=== PATIENT | female | born 1980 | race Caucasian/White ===

== ENCOUNTER → 2016-12-19 | Outpatient (REF) | payer OTHER ==
[2016-12-19 20:16] LABS: FERRITIN 20 NG/ML (8-252); TOTAL PROTEIN 6.6 GM/DL (6.4-8.2)
[2016-12-19 20:22] LABS: FOLATE > 24.0 NG/ML (>5.4); VITAMIN B12 LEVEL 1101 PG/ML (247-911)
[2016-12-23 12:22] LABS: ALBUMIN % 63.6 % (55.8-66.1); GAMMA GLOBULIN % 14.7 % (11.1-18.8)
[2016-12-24 08:06] LABS: VITAMIN E LEVEL 14.8 mg/L (5.3-16.8)
== END ==
LOC: M LABNEURO 11:33
PROVIDERS: ATTEND Psychiatry & Neurology Neurology
DX: G60.9 Hereditary and idiopathic neuropathy, unspecified (principal)

== ENCOUNTER → 2016-12-26 | Outpatient (REF) | payer OTHER ==
[2016-12-26 17:24] LABS: INR 1.07
[2016-12-26 18:24] LABS: PERCENT SATURATION 41.2 % (13.2-37.4)
[2016-12-26 18:29] LABS: FOLATE 22.2 NG/ML (>5.4)
[2016-12-26 20:09] LABS: REASON FOR REVIEW COMPREHENSIVE REVIEW
== END ==
LOC: M LAB REF 16:31
PROVIDERS: ATTEND Internal Medicine Medical Oncology
DX: D64.9 Anemia, unspecified (principal); D72.819 Decreased white blood cell count, unspecified

== ENCOUNTER → 2017-01-06 | Outpatient (REF) | payer OTHER ==
[~2017-01-06] MED LIST: AUGM875T27 PO; FERRPOW60 PO; MULT1TAB10 PO; NORCOTAB PO; OMEG100011 PO; PROBCAP4 PO; ZOFR4TAB3 PO
== END ==
LOC: M LAB REF 16:21
PROVIDERS: ATTEND Internal Medicine Medical Oncology
DX: D64.9 Anemia, unspecified (principal); D72.819 Decreased white blood cell count, unspecified

== ENCOUNTER 2017-01-07 13:08 | Emergency (ER) | payer OTHER ==
[~2017-01-07] VITALS: Ht 162.6 cm; Wt 63.5 kg
[2017-01-07] MEDS ORDERED: OMEG100011 PO (13:40)
[2017-01-07] MEDS ORDERED: MULT1TAB10 PO (13:40)
[2017-01-07] MEDS ORDERED: AUGM875T27 PO (13:40)
[2017-01-07] MEDS ORDERED: PROBCAP4 PO (13:40)
[2017-01-07] MEDS ORDERED: FERRPOW60 PO (13:40)
[2017-01-07] MEDS ORDERED: NS 1,000 ML IV SCH (14:16)
[2017-01-07 14:56] LABS: BASO % 0.6 % (0.0-1.0); EOS % 0.9 % (0.0-3.0); LARGE UNSTAINED CELL # 0.1 K/mm3 (0.0-0.4); LARGE UNSTAINED CELL % 1.9 % (0.0-4.0); LYMPH # 1.6 K/mm3 (1.5-4.5); LYMPH % 36.1 % (24.0-44.0); MEAN CORPUSCULAR HEMOGLOBIN 30.9 pg (27.0-33.0); MEAN CORPUSCULAR HGB CONC 32.4 g/dl (32.0-36.5); MEAN CORPUSCULAR VOLUME 95.5 fl (80.0-96.0); MONO # 0.2 K/mm3 (0.0-0.8); NEUTROPHILS # 2.5 K/mm3 (1.8-7.7); NEUTROPHILS % 56.5 % (36.0-66.0); PLATELET COUNT, AUTOMATED 165 k/mm3 (150-450); RED CELL DISTRIBUTION WIDTH 17.2 % (11.5-14.5); WHITE BLOOD COUNT 4.4 K/mm3 (4.0-10.0)
[2017-01-07 15:33] LABS: ALBUMIN 3.9 GM/DL (3.2-5.2); ALBUMIN/GLOBULIN RATIO 1.34 (1.00-1.93); ALKALINE PHOSPHATASE 44 U/L (45-117); ALT/SGPT 22 U/L (12-78); ANION GAP 6 MEQ/L (8-16); AST/SGOT 18 U/L (15-37); BILIRUBIN,DIRECT 0.3 MG/DL (0.0-0.2); BILIRUBIN,TOTAL 1.1 MG/DL (0.2-1.0); BLOOD UREA NITROGEN 11 MG/DL (7-18); CALCIUM LEVEL 8.4 MG/DL (8.5-10.1); CARBON DIOXIDE LEVEL 29 MEQ/L (21-32); CHLORIDE LEVEL 106 MEQ/L (98-107); CREATININE FOR GFR 1.01 MG/DL (0.55-1.02); GLOMERULAR FILTRATION RATE > 60.0 (>60); GLUCOSE, FASTING 106 MG/DL (70-105); POTASSIUM SERUM 4.1 MEQ/L (3.5-5.1); SODIUM LEVEL 141 MEQ/L (136-145); TOTAL PROTEIN 6.8 GM/DL (6.4-8.2)
[2017-01-07] MEDS ORDERED: ISOVUE-370 76% 100ML VIAL (Q9967) As Ordered ONE (15:38)
--- NOTE | 2017-01-07 16:07 | REP ---
Clinical: Status post cholecystectomy with right upper quadrant pain. Technique: Axial contrast enhanced images from the lung bases to the pubic symphysis using 100 ml Isovue 370 intravenous contrast material with delayed images of the abdomen as well as coronal and sagittal re-formations. Findings: Lung bases are clear. Visualized heart and pericardium normal. The patient is noted to be status post cholecystectomy with mild biliary dilatation extending into the right hepatic lobe, but no obvious evidence for choledocholithiasis. The gallbladder fossa is relatively unremarkable and no abnormal fluid collections are identified. The liver demonstrates two hemangiomas measuring approximately 4.1 cm and 2.1 cm maximal diameter. Spleen, pancreas, bilateral adrenal glands and kidneys are essentially normal. Subcentimeter renal hypodensities suggest small cysts. The enteric system demonstrates moderate fecal stasis without obstruction. No free air to suggest pneumoperitoneum. Pelvis demonstrates normal bladder and age-appropriate uterus/adnexa. No significant ascites. No obvious adenopathy. Vasculature is normal. Impression: 1. Benign hepatic hemangiomas measuring up to 4.1 cm. 2. Evidence for prior cholecystectomy with minimal intrahepatic dilatation extending into the right hepatic lobe, but no evidence for CBD dilatation or obvious choledocholithiasis. The gallbladder fossa appears normal. 3. No further acute intra-abdominal or pelvic pathology appreciated. Signed by River Moreno MD 01/07/2017 03:58 P
[2017-01-07] MEDS ORDERED: ZOFR4TAB3 PO (16:39)
[2017-01-07] MEDS ORDERED: NORCOTAB PO (16:39)
[2017-01-07 16:52] VITALS: BP 118/70
== END 2017-01-07 16:55 | disposition home or self-care (01) ==
LOC: M ED 14:22
DX: D18.03 Hemangioma of intra-abdominal structures (principal); R10.11 Right upper quadrant pain; D64.9 Anemia, unspecified; Z90.49 Acquired absence of other specified parts of digestive tract; Z82.49 Family history of ischemic heart disease and other diseases of the circulatory system; Z83.3 Family history of diabetes mellitus; Z79.899 Other long term (current) drug therapy
CPT/HCPCS: 36415; 74177; 80048; 80076; 81001; 83605; 83690; 85025; 96360; 96361; 99283; Q9967

== ENCOUNTER → 2017-02-18 | Day surgery (SDC) | payer OTHER ==
[~2017-02-18] VITALS: Ht 162.6 cm; Wt 61.2 kg
[~2017-02-18] MED LIST changes: +ACETAMINOPHEN 650 MG SUPP As Ordered ONE; +ACETAMINOPHEN 650 MG SUPP PR ONE; -AUGM875T27 PO; +AUGM875T28 PO; +KETOROLAC 60 MG/2 ML VIAL (J1885) As Ordered ONE; +LIDOCAINE 2% INJ 100 MG/5 ML SDV (FOR ANES.) As Ordered ONE; +LR 1,000 ML IV SCH; +MEPERIDINE INJ 25 MG/ML VIAL (J2175) IV PRN; +METOCLOPRAMIDE INJ 10MG/2ML VIAL (J2765) As Ordered ONE; +METOCLOPRAMIDE INJ 10MG/2ML VIAL (J2765) IV PRN; +MIDAZOLAM INJ 2 MG/2 ML VIAL (J2250) As Ordered ONE; +NS 1,000 ML IV SCH; +OMEP40CA2 PO; +ONDANSETRON 4MG/2ML VIAL (J2405) As Ordered ONE; +ONDANSETRON 4MG/2ML VIAL (J2405) IV PRN; +PERCOCET 5MG/325MG TAB PO PRN; +PROPOFOL 200 MG/20 ML VIAL As Ordered ONE; +SODIUM CHLORIDE 0.9% 1000 ML IV ONE; +SPIR25TA2 PO; +ePHEDrine SULFATE 25 MG/5 ML(5MG/ML) SYRINGE As Ordered ONE; +fentaNYL 100 MCG/2 ML INJECTION (J3010) As Ordered ONE; +fentaNYL 100 MCG/2 ML INJECTION (J3010) IV PRN
[2017-02-18 10:30] LABS: MEAN CORPUSCULAR HEMOGLOBIN 32.4 pg (27.0-33.0); MEAN CORPUSCULAR HGB CONC 33.5 g/dl (32.0-36.5); MEAN CORPUSCULAR VOLUME 96.6 fl (80.0-96.0); RED CELL DISTRIBUTION WIDTH 15.2 % (11.5-14.5); WHITE BLOOD COUNT 3.6 K/mm3 (4.0-10.0)
[2017-02-18 10:55] LABS: ANION GAP 5 MEQ/L (8-16); BLOOD UREA NITROGEN 13 MG/DL (7-18); CALCIUM LEVEL 8.6 MG/DL (8.5-10.1); CARBON DIOXIDE LEVEL 29 MEQ/L (21-32); CHLORIDE LEVEL 107 MEQ/L (98-107); CREATININE FOR GFR 0.87 MG/DL (0.55-1.02); GLOMERULAR FILTRATION RATE > 60.0 (>60); GLUCOSE, FASTING 85 MG/DL (70-105); HCG, SERUM QUANTITATIVE < 1.0 MIU/ML; POTASSIUM SERUM 3.9 MEQ/L (3.5-5.1); SODIUM LEVEL 141 MEQ/L (136-145)
[2017-02-18 14:16] VITALS: BP 104/59
--- NOTE | 2017-02-18 17:45 | RO ---
DATE OF PROCEDURE: 02/18/2017 PREOPERATIVE DIAGNOSIS: Abnormal uterine bleeding. POSTOPERATIVE DIAGNOSIS: Abnormal uterine bleeding. OPERATION: Post hysteroscopy, dilatation and curettage (D and C), endometrial NovaSure ablation. OPERATION PERFORMED: Hysteroscopy, D and C, NovaSure ablation. SURGEON : Dr. Chacorta Thayer MACHINE HEEL SPRAYER: ANESTHESIA: General. ESTIMATED BLOOD LOSS: Less than 20 mL. DESCRIPTION OF PROCEDURE: After adequate time-out, prepped and lithotomy position, bladder drained for 50 mL of clear urine. Evaluation showed the patient has a rectocele grade 1 a wide transformation zone, large volume cervix and significant cervical prolapse. With a single-tooth tenaculum anterior lip of the cervix, uterus sounded up to 6.5 cm. It was dilated up to Stephenson 14 and curettage of the cavity. Last period was 01/24/2017. The settings for the ablation were 6.5 cavity length, 4.3 cavity width, 159 power and NovaSure endometrial ablation was done for 53 seconds, The machine was removed. The hysteroscope was introduced. Panoramic review revealed the lining was significantly ablated throughout the entire cavity up to the os on both sides. No evidence of active bleeding was noted. We used 150 mL in 150 mL out. The uterus was placed anatomical position and the patient was sent to the postop shaw in good condition.
== END | disposition home or self-care (01) ==
LOC: M SDC 09:54
PROVIDERS: ATTEND Obstetrics & Gynecology
DX: N93.9 Abnormal uterine and vaginal bleeding, unspecified (principal); T88.59XD Other complications of anesthesia, subsequent encounter; K44.9 Diaphragmatic hernia without obstruction or gangrene; K21.9 Gastro-esophageal reflux disease without esophagitis; D64.9 Anemia, unspecified; M12.9 Arthropathy, unspecified; M51.9 Unspecified thoracic, thoracolumbar and lumbosacral intervertebral disc disorder; Z79.899 Other long term (current) drug therapy
CPT/HCPCS: 36415; 58563; 80048; 84702; 85027; 88305; A4649; J1885; J2250; J2405; J2765; J3010

== ENCOUNTER → 2017-03-24 | Outpatient (REF) | payer OTHER ==
[~2017-03-24] MED LIST changes: -ACETAMINOPHEN 650 MG SUPP As Ordered ONE; -ACETAMINOPHEN 650 MG SUPP PR ONE; -KETOROLAC 60 MG/2 ML VIAL (J1885) As Ordered ONE; -LIDOCAINE 2% INJ 100 MG/5 ML SDV (FOR ANES.) As Ordered ONE; -LR 1,000 ML IV SCH; -MEPERIDINE INJ 25 MG/ML VIAL (J2175) IV PRN; -METOCLOPRAMIDE INJ 10MG/2ML VIAL (J2765) As Ordered ONE; -METOCLOPRAMIDE INJ 10MG/2ML VIAL (J2765) IV PRN; -MIDAZOLAM INJ 2 MG/2 ML VIAL (J2250) As Ordered ONE; -NS 1,000 ML IV SCH; -ONDANSETRON 4MG/2ML VIAL (J2405) As Ordered ONE; -ONDANSETRON 4MG/2ML VIAL (J2405) IV PRN; -PERCOCET 5MG/325MG TAB PO PRN; -PROPOFOL 200 MG/20 ML VIAL As Ordered ONE; -SODIUM CHLORIDE 0.9% 1000 ML IV ONE; -ePHEDrine SULFATE 25 MG/5 ML(5MG/ML) SYRINGE As Ordered ONE; -fentaNYL 100 MCG/2 ML INJECTION (J3010) As Ordered ONE; -fentaNYL 100 MCG/2 ML INJECTION (J3010) IV PRN
[2017-03-24 13:40] LABS: PERCENT SATURATION 31.9 % (13.2-37.4)
[2017-03-26 14:14] LABS: F8 ACTIVITY FOR F8 PANEL 81 % (57-163); F8 ACTIVITY vWB FOR F8 PANEL 93 % (50-200); F8 ANTIGEN FOR F8 PANEL 82 % (50-200); INTERPRETATION: Note (.)
== END ==
LOC: M LAB REF 13:11
PROVIDERS: ATTEND Internal Medicine Medical Oncology
DX: D50.9 Iron deficiency anemia, unspecified (principal)

== ENCOUNTER → 2017-05-29 | Outpatient (REF) | payer OTHER ==
[2017-05-29 14:58] LABS: PERCENT SATURATION 45.7 % (13.2-45.0)
== END ==
LOC: M LAB REF 12:43
PROVIDERS: ATTEND Internal Medicine Medical Oncology
DX: D50.9 Iron deficiency anemia, unspecified (principal)

== ENCOUNTER → 2017-07-15 | Outpatient (CLI) | payer OTHER ==
--- NOTE | 2017-07-15 12:20 | REP ---
BILATERAL MAMMOGRAM WITH RIGHT BREAST ULTRASOUND: Bilateral mammography is performed in the MLO and CC projections. Reportedly the patient had prior MRI at [facility] which showed prominent axillary lymph nodes. There are no prior mammograms for comparison. Mild scattered fibroglandular tissue is seen bilaterally. There is a subcentimeter nodule in the upper outer quadrant of the right breast about 5 cm from the nipple, which demonstrates smooth and well defined borders and also demonstrates a lucent notch, most likely representing an intramammary lymph node. Diameter is approximately 4 mm. I see no other evidence of mass or clustered microcalcifications. Real-time sonographic evaluation of the upper outer quadrant of the right breast confirms the presence of an intramammary lymph node measuring 5 x 3 x 8 mm. This is benign. IMPRESSION: BI-RADS/ACR category 2 mammogram. Benign finding(s). Routine annual screening mammography (for women over age 40). Small subcentimeter intramammary lymph node upper outer quadrant of the right breast. Otherwise unremarkable mammogram with no mass or clustered microcalcifications. No axillary adenopathy is seen by mammography. Recommend followup mammogram in 1 year. This mammogram was interpreted with the aid of an FDA-approved computer-aided detection system. A. Negative x-ray reports should not delay biopsy if a dominant or clinically suspicious mass is present. B. Four to eight percent of cancers are not identified by x-ray. C. Adenosis and dense breasts may obscure an underlying neoplasm. The patient states that she/he has not had a clinical breast exam in over a year. The patient letter being requested is M2. Signed by Adi Pruitt MD 07/15/2017 04:57 P
== END ==
LOC: M RAD 10:35
PROVIDERS: ATTEND Family Medicine
DX: Z12.31 Encounter for screening mammogram for malignant neoplasm of breast (principal); N63.10 Unspecified lump in the right breast, unspecified quadrant
CPT/HCPCS: 76642; G0204

== ENCOUNTER → 2017-07-29 | Outpatient (REF) | payer OTHER ==
[2017-07-29 14:35] LABS: PERCENT SATURATION 36.5 % (13.2-45.0)
== END ==
LOC: M LAB REF 13:44
PROVIDERS: ATTEND Internal Medicine Medical Oncology
DX: D50.9 Iron deficiency anemia, unspecified (principal)

== ENCOUNTER → 2017-10-27 | Outpatient (REF) | payer OTHER ==
[2017-10-27 14:39] LABS: FERRITIN 17 NG/ML (8-252); IRON (FE) 104 UG/DL (50-170); PERCENT SATURATION 31.3 % (13.2-45.0); TOTAL IRON BINDING CAPACITY 332 UG/DL (250-450)
== END ==
LOC: M LAB REF 13:24
DX: D50.9 Iron deficiency anemia, unspecified (principal)

== ENCOUNTER → 2018-07-22 | Outpatient (CLI) | payer OTHER | LOC: M RAD 09:50 | DX: R59.0 Localized enlarged lymph nodes (principal) | CPT/HCPCS: 77066 ==

== ENCOUNTER → 2018-09-30 | Outpatient (REF) | payer OTHER ==
[~2018-09-30] MED LIST changes: +FERR325T3 PO; +SPIR-10 PO; -SPIR25TA2 PO; +ZOFR4TAB14 PO; -ZOFR4TAB3 PO
== END ==
LOC: M SFHCLERA 15:23
PROVIDERS: ATTEND Physician Assistant
DX: R50.9 Fever, unspecified (principal)

== ENCOUNTER → 2019-07-27 | Outpatient (CLI) | payer OTHER ==
[~2019-07-27] MED LIST changes: +HYDR-3715 PO; +MULTTAB13 PO; -NORCOTAB PO; -OMEP40CA2 PO; +OMEP40CA97 PO; +PLAQ200T4 PO; +PROBCAP14 PO
--- NOTE | 2019-07-27 10:54 | REPMRS ---
Patient History The patient states she has not had a clinical breast exam in over a year. Family history of breast cancer at age 55 in paternal aunt, unknown cancer at age 60 in paternal aunt, ovarian cancer at age 18 in paternal aunt. Took hormonal contraceptives for 5 years. The [place] lifetime risk for breast cancer is 16.1%. Digital Mammo Screening Bilat: July 27, 2019 - Exam #: [id number] Bilateral CC and MLO view(s) were taken. Technologist: Edna Carpenter, Technologist Prior study comparison: July 22, 2018, digital mammo diagnostic bilateral performed at [facility]. July 15, 2017, digital mammo diagnostic bilateral performed at [facility]. FINDINGS: The breast tissue is heterogeneously dense. This may lower the sensitivity of mammography. There has been no change in the appearance of the mammogram from the prior studies. There is a moderate amount of residual fibroglandular tissue which is fairly symmetric. There is no interval development of dominant mass, areas of architectural distortion, or clustered microcalcification typical of malignancy. Assessment: BI-RADS/ACR category 1 mammogram. Negative Mammogram. Recommendation Routine screening mammogram in 1 year (for women over age 40). This mammogram was interpreted with the aid of an FDA-approved computer-aided dectection system. Electronically Signed By: Adi Pruitt MD 07/27/19 [id number]
== END ==
LOC: M RAD 10:09
PROVIDERS: ATTEND Nurse Practitioner Primary Care
DX: Z12.31 Encounter for screening mammogram for malignant neoplasm of breast (principal); Z92.0 Personal history of contraception

== ENCOUNTER → 2019-12-22 | Outpatient (CLI) | payer OTHER ==
[~2019-12-22] MED LIST changes: +METHACHOLINE KIT (J7674) INH ONE
--- NOTE | 2019-12-22 15:42 | PFTRPT ---
Height: 64.00 Inches Weight: 140.00 Lbs BSA: 1.68 Diagnosis: R05 DATE OF PROCEDURE: 12/22/2019 ORDERED BY: Shelby Lilly INTERPRETATION: Study of excellent technical quality. Under protocol, methacholine was administered. At a dose of 2.5 mg or 13.875 CDUs, a 38% decline in the FEV1 was noted. PC of 0.53 is significant. Flow rates did return to baseline post bronchodilator administration. IMPRESSION: Positive methacholine challenge study. MTDD
== END ==
LOC: M CARPUL 12-15 13:36
PROVIDERS: ATTEND Nurse Practitioner Family
DX: R05 Cough (principal)
CPT/HCPCS: 94070; J7674